=== PATIENT | female | born 1940 | race Hispanic/Latino ===

== ENCOUNTER 2021-09-22 07:58 | Outpatient (CLI) | payer MEDICARE, MEDICAID | END 2021-09-22 07:59 | disposition home or self-care (01) | LOC: CSHULT 07:58 | PROVIDERS: ATTEND Family Medicine | DX: R19.7 Diarrhea, unspecified (principal); R10.84 Generalized abdominal pain; R63.0 Anorexia | CPT/HCPCS: 76700; 76856 ==